=== PATIENT | female | born 1985 | race Caucasian/White ===

== ENCOUNTER 2018-01-24 14:45 | Outpatient (CLI) | payer MEDICAID ==
[2018-01-24] MEDS ORDERED: DIPHENOXYLATE/ATROPINE TAB PO (16:00)
[2018-01-24] MEDS: LACTATED RINGER'S 1,000 ML IV (16:08)
[2018-01-24] MEDS: ONDANSETRON 4 MG INJ IV (16:20)
[2018-01-24 16:29] LABS: ADD MAN DIFF? NO
[2018-01-24 16:31] LABS: BASOPHILS % 0.2 % (0.0-2.0); EOSINOPHILS # 0.1 10^3/ul (0.0-0.5); EOSINOPHILS % 0.9 % (0.0-7.0); HEMATOCRIT 33.3 % (37.0-47.0); HEMOGLOBIN 10.5 g/dl (12.0-16.0); LYMPHOCYTES # 1.3 10^3/ul (0.8-2.9); LYMPHOCYTES % 15.3 % (15.0-51.0); MEAN CORPUSCULAR HEMOGLOBIN 26.6 pg (29.0-33.0); MEAN CORPUSCULAR HGB CONC 31.5 g/dl (32.0-37.0); MEAN CORPUSCULAR VOLUME 84.5 fl (82.0-101.0); MEAN PLATELET VOLUME 11.7 fl (7.4-10.4); MONOCYTE # 0.7 10^3/ul (0.3-0.9); MONOCYTES % 8.3 % (0.0-11.0); NEUTROPHIL # 6.6 10^3/ul (1.6-7.5); NEUTROPHILS % 74.7 % (39.0-77.0); PLATELET COUNT 244 10^3/UL (140-415); RED BLOOD COUNT 3.94 10^6/ul (4.20-5.40); RED CELL DISTRIBUTION WIDTH 15.4 % (11.5-14.5)
[2018-01-24 16:31] LABS: WHITE BLOOD COUNT 8.8 10^3/ul (4.8-10.8)
[2018-01-24 16:32] LABS: ADD UMIC NO; UR ASCORBIC ACID NEGATIVE (NEGATIVE); UR BILIRUBIN (Dip) NEGATIVE (NEGATIVE); UR BLOOD (Dip) NEGATIVE (NEGATIVE); UR CLARITY CLEAR (CLEAR); UR COLOR STRAW (YELLOW); UR GLUCOSE (Dip) NEGATIVE (NEGATIVE); UR KETONES (Dip) NEGATIVE (NEGATIVE); UR LEUKOCYTE ESTERASE (Dip) NEGATIVE Leu/ul (NEGATIVE); UR NITRITE (Dip) NEGATIVE (NEGATIVE); UR SPECIFIC GRAVITY (Dip) 1.004 (1.003-1.030); UR TOTAL PROTEIN (Dip) NEGATIVE (NEGATIVE); UR UROBILINOGEN (Dip) NEGATIVE (NEGATIVE)
[2018-01-24] MEDS: LOPERAMIDE 2 MG CAP PO (16:39)
[2018-01-24 16:49] LABS: ALANINE AMINOTRANSFERASE 19 IU/L (13-69); ALBUMIN 3.8 g/dl (3.3-4.9); ALBUMIN/GLOBULIN RATIO 1.26; ALKALINE PHOSPHATASE 162 IU/L (42-121); ANION GAP 11 (5-13); ASPARTATE AMINO TRANSFERASE 26 IU/L (15-46); BILIRUBIN,INDIRECT 0.2 mg/dl (0-1.1); BILIRUBIN,TOTAL 0.2 mg/dl (0.2-1.3); BLOOD UREA NITROGEN 12 mg/dl (7-20); CALCIUM 9.2 mg/dl (8.4-10.2); CARBON DIOXIDE 21 mmol/L (21-31); CHLORIDE 105 mmol/L (97-110); Estimated GFR > 60 mL/min (>60); GLUCOSE 84 mg/dl (70-220); SODIUM 137 mmol/L (135-144); TOTAL PROTEIN 6.8 g/dl (6.1-8.1)
== END 2018-01-24 17:41 | disposition home or self-care (01) ==
LOC: OBT 14:45 → L-D 14:45 → OBT 17:41
DX: O21.0 Mild hyperemesis gravidarum (principal); O26.893 Other specified pregnancy related conditions, third trimester; R19.7 Diarrhea, unspecified; Z3A.34 34 weeks gestation of pregnancy
CPT/HCPCS: 36415; 76818; 80053; 81003; 85025; 96360

== ENCOUNTER 2018-02-08 10:57 | Inpatient (IN) | payer MEDICAID ==
[2018-02-08] MEDS ORDERED: CARBOPROST 250 MCG INJ IM (11:30)
[2018-02-08] MEDS ORDERED: OXYTOCIN 30 UNITS/LR 500 ML IV ×3 (11:30→13:00)
[2018-02-08] MEDS ORDERED: LIDOCAINE 1% (MPF) 30 ML INJ INJ (11:30)
[2018-02-08] MEDS ORDERED: MISOPROSTOL 200 MCG TAB PR (11:30)
[2018-02-08] MEDS ORDERED: METHYLERGONOVINE 0.2 MG INJ IM (11:30)
[2018-02-08] MEDS ORDERED: IBUPROFEN 600 MG TAB PO (11:30)
[2018-02-08] MEDS: LACTATED RINGER'S 1,000 ML IV ×2 (11:48→21:11)
[2018-02-08 12:07] LABS: ADD MAN DIFF? NO
[2018-02-08 12:13] LABS: BASOPHILS % 0.5 % (0.0-2.0); EOSINOPHILS # 0.1 10^3/ul (0.0-0.5); EOSINOPHILS % 0.9 % (0.0-7.0); HEMATOCRIT 30.9 % (37.0-47.0); LYMPHOCYTES # 1.7 10^3/ul (0.8-2.9); LYMPHOCYTES % 20.7 % (15.0-51.0); MEAN CORPUSCULAR HEMOGLOBIN 26.7 pg (29.0-33.0); MEAN CORPUSCULAR HGB CONC 32.4 g/dl (32.0-37.0); MEAN CORPUSCULAR VOLUME 82.6 fl (82.0-101.0); MEAN PLATELET VOLUME 12.5 fl (7.4-10.4); MONOCYTE # 0.7 10^3/ul (0.3-0.9); MONOCYTES % 8.3 % (0.0-11.0); NEUTROPHIL # 5.6 10^3/ul (1.6-7.5); NEUTROPHILS % 69.1 % (39.0-77.0); PLATELET COUNT 227 10^3/UL (140-415); RED BLOOD COUNT 3.74 10^6/ul (4.20-5.40); RED CELL DISTRIBUTION WIDTH 15.6 % (11.5-14.5)
[2018-02-08 12:13] LABS: WHITE BLOOD COUNT 8.1 10^3/ul (4.8-10.8)
[2018-02-08 12:32] LABS: ALANINE AMINOTRANSFERASE 15 IU/L (13-69); ALBUMIN 3.7 g/dl (3.3-4.9); ALBUMIN/GLOBULIN RATIO 1.02; ALKALINE PHOSPHATASE 163 IU/L (42-121); ANION GAP 11 (5-13); ASPARTATE AMINO TRANSFERASE 24 IU/L (15-46); BILIRUBIN,INDIRECT 0.3 mg/dl (0-1.1); BILIRUBIN,TOTAL 0.3 mg/dl (0.2-1.3); BLOOD UREA NITROGEN 15 mg/dl (7-20); CALCIUM 9.3 mg/dl (8.4-10.2); CARBON DIOXIDE 19 mmol/L (21-31); CHLORIDE 108 mmol/L (97-110); CREATININE 0.57 mg/dl (0.44-1.00); Estimated GFR > 60 mL/min (>60); GLUCOSE 79 mg/dl (70-220); POTASSIUM 3.9 mmol/L (3.5-5.1); SODIUM 138 mmol/L (135-144); TOTAL PROTEIN 7.3 g/dl (6.1-8.1); URIC ACID 6.1 mg/dl (3.1-7.9)
[2018-02-08] MEDS ORDERED: MISOPROSTOL 100 MCG TAB PO ×2 (12:45→13:00)
[2018-02-08 12:55] LABS: ADD UMIC NO; UR ASCORBIC ACID NEGATIVE (NEGATIVE); UR BILIRUBIN (Dip) NEGATIVE (NEGATIVE); UR BLOOD (Dip) NEGATIVE (NEGATIVE); UR CLARITY CLEAR (CLEAR); UR COLOR STRAW (YELLOW); UR GLUCOSE (Dip) NEGATIVE (NEGATIVE); UR KETONES (Dip) NEGATIVE (NEGATIVE); UR LEUKOCYTE ESTERASE (Dip) NEGATIVE Leu/ul (NEGATIVE); UR NITRITE (Dip) NEGATIVE (NEGATIVE); UR SPECIFIC GRAVITY (Dip) 1.005 (1.003-1.030); UR TOTAL PROTEIN (Dip) NEGATIVE (NEGATIVE); UR UROBILINOGEN (Dip) NEGATIVE (NEGATIVE)
[2018-02-08 13:11] LABS: INR 0.91; PARTIAL THROMBOPLASTIN TIME 25.3 Sec (23.0-35.0); PROTIME 12.3 Sec (11.9-14.9)
[2018-02-08] MEDS: MAGNESIUM SULFATE 4 GM/100 ML 100 ML IV (14:09)
[2018-02-08] MEDS: MISOPROSTOL 50 MCG CAPSULE PO ×2 (14:09→17:43)
[2018-02-08] MEDS: MAGNESIUM SULFATE 20 GM/500 ML 500 ML IV (14:39)
[2018-02-08 15:15] LABS: RAPID PLASMA REAGIN NONREACTIVE (NR)
[2018-02-08] MEDS ORDERED: AMPICILLIN 2 GM/NS (PMX) 100 ML IV (15:30)
[2018-02-08] MEDS: BUTORPHANOL 2 MG INJ IV ×2 (17:41→20:55)
[2018-02-08 18:40] LABS: MAGNESIUM 5.3 mg/dl (1.7-2.5)
[2018-02-08] MEDS ORDERED: AMPICILLIN 1 GM/NS (PMX) 50 ML IV (19:30)
[2018-02-08] MEDS: LABETALOL 100 MG TAB PO (21:01)
[2018-02-08] MEDS: LABETALOL HCL 20MG INJ IV (21:10)
[2018-02-08 22:12] LABS: HEPATITIS B SURFACE ANTIGEN NEGATIVE (NEGATIVE)
[2018-02-09] MEDS: MAGNESIUM SULFATE 20 GM/500 ML 500 ML IV ×2 (00:24→12:51)
[2018-02-09 01:19] LABS: MAGNESIUM 5.9 mg/dl (1.7-2.5)
[2018-02-09] MEDS: LACTATED RINGER'S 1,000 ML IV ×2 (03:06→08:00)
[2018-02-09] MEDS: BUTORPHANOL 2 MG INJ IV (04:41)
[2018-02-09] MEDS: MISOPROSTOL 50 MCG CAPSULE PO (05:15)
[2018-02-09 06:56] LABS: MAGNESIUM 6.6 mg/dl (1.7-2.5)
[2018-02-09] MEDS ORDERED: LIDOCAINE 2% (SDV) 5 ML INJ (07:00)
[2018-02-09] MEDS ORDERED: FENTAnyl 2MCG/ML-ROPIV 0.2% 100 ML (07:52)
[2018-02-09] MEDS ORDERED: TRIMETHOBENZAMIDE 100 MG/ML VIAL IM ×2 (08:30→14:30)
[2018-02-09] MEDS ORDERED: NALOXONE (0.4 MG/ML) INJ IV ×2 (08:30→14:30)
[2018-02-09] MEDS ORDERED: FENTAnyl 2MCG/ML-ROPIV 0.2% 100 ML BAG EPI (08:30)
[2018-02-09] MEDS ORDERED: DIPHENHYDRAMINE 50 MG INJ IV ×2 (08:30→14:30)
[2018-02-09] MEDS: ONDANSETRON 4 MG INJ IV (08:43)
[2018-02-09] MEDS: CEFAZOLIN 2 GM/50 ML (PMX) 50 ML IVPB (09:00)
[2018-02-09] MEDS ORDERED: FENTAnyl 50 MCG/ML VIAL (11:19)
[2018-02-09] MEDS ORDERED: OXYTOCIN 10 UNIT INJ (11:19)
[2018-02-09] MEDS ORDERED: morphine SULFATE/PF (10 MG/10 ML) INJ (11:19)
[2018-02-09] MEDS ORDERED: PHENYLephrine (100 MCG/ML) 5ML SYG (11:19)
[2018-02-09] MEDS ORDERED: METOCLOPRAMIDE 10 MG INJ (11:19)
[2018-02-09] MEDS: OXYTOCIN 30 UNITS/LR 500 ML IV ×3 (12:53→23:06)
[2018-02-09 13:25] LABS: MAGNESIUM 4.7 mg/dl (1.7-2.5)
[2018-02-09] MEDS: KETOROLAC 30 MG INJ IV ×2 (14:24→23:08)
[2018-02-09] MEDS ORDERED: morphine 2 MG INJ IV ×2 (14:30)
[2018-02-09] MEDS ORDERED: NALBUPHINE HCL (10 MG/1 ML) INJ IV (14:30)
[2018-02-09] MEDS ORDERED: ONDANSETRON 4 MG INJ IV (14:30)
[2018-02-09] MEDS ORDERED: CARBOPROST 250 MCG INJ IM (15:30)
[2018-02-09] MEDS ORDERED: MISOPROSTOL 200 MCG TAB PR (15:30)
[2018-02-09] MEDS ORDERED: CEFAZOLIN 1 GM/50 ML (PMX) 50 ML IVPB (15:30)
[2018-02-09] MEDS ORDERED: LANOLIN 7 GM TUBE TOP (15:30)
[2018-02-09] MEDS ORDERED: METHYLERGONOVINE 0.2 MG INJ IM (15:30)
[2018-02-09] MEDS ORDERED: OXYTOCIN 30 UNITS/LR 500 ML IV (15:30)
[2018-02-09 15:43] LABS: COLLECTION PERIOD 24 hrs
[2018-02-09 16:01] LABS: CREATININE,URINE RANDOM 43.18 mg/dl (20-320)
[2018-02-09 16:03] LABS: COLLECTION PERIOD 24 hrs; CREATININE CLEARANCE 94.7 mls/min (84.0-162.0); SCRET 0.57 mg/dl (0.44-1.00); VOLUME 1800 ml/24hrs; VOLUME 1800 mls
[2018-02-09] MEDS: CEFAZOLIN 1 GM/50 ML (PMX) 50 ML IVPB (18:14)
[2018-02-09 19:10] LABS: MAGNESIUM 4.6 mg/dl (1.7-2.5)
[2018-02-10 01:11] LABS: MAGNESIUM 4.7 mg/dl (1.7-2.5)
[2018-02-10] MEDS: OXYTOCIN 30 UNITS/LR 500 ML IV ×2 (04:17→09:27)
[2018-02-10] MEDS: KETOROLAC 30 MG INJ IV (06:11)
[2018-02-10] MEDS: MAGNESIUM SULFATE 20 GM/500 ML 500 ML IV (08:37)
[2018-02-10 08:43] LABS: ADD MAN DIFF? NO
[2018-02-10 08:47] LABS: BASOPHILS % 0.2 % (0.0-2.0); EOSINOPHILS # 0.1 10^3/ul (0.0-0.5); EOSINOPHILS % 0.8 % (0.0-7.0); HEMATOCRIT 25.1 % (37.0-47.0); HEMOGLOBIN 8.1 g/dl (12.0-16.0); LYMPHOCYTES # 1.5 10^3/ul (0.8-2.9); LYMPHOCYTES % 12.8 % (15.0-51.0); MEAN CORPUSCULAR HEMOGLOBIN 26.7 pg (29.0-33.0); MEAN CORPUSCULAR HGB CONC 32.3 g/dl (32.0-37.0); MEAN CORPUSCULAR VOLUME 82.8 fl (82.0-101.0); MEAN PLATELET VOLUME 12.4 fl (7.4-10.4); MONOCYTE # 1.1 10^3/ul (0.3-0.9); MONOCYTES % 9.4 % (0.0-11.0); NEUTROPHIL # 9.1 10^3/ul (1.6-7.5); NEUTROPHILS % 76.5 % (39.0-77.0); PLATELET COUNT 197 10^3/UL (140-415); RED BLOOD COUNT 3.03 10^6/ul (4.20-5.40); RED CELL DISTRIBUTION WIDTH 15.4 % (11.5-14.5)
[2018-02-10 08:47] LABS: WHITE BLOOD COUNT 11.8 10^3/ul (4.8-10.8)
[2018-02-10 09:09] LABS: MAGNESIUM 4.5 mg/dl (1.7-2.5)
[2018-02-10] MEDS: SENNA/DOCUSATE NA (8.6MG/50MG) TAB PO ×2 (09:26→21:08)
[2018-02-10] MEDS: LABETALOL 100 MG TAB PO ×2 (10:25→21:08)
[2018-02-10] MEDS ORDERED: OXYCODONE/ACETAMINOPHEN (5/325) TAB PO ×2 (10:50)
[2018-02-10] MEDS ORDERED: HYDROCODONE/APAP (5/325) TAB PO (10:50)
[2018-02-10] MEDS: IBUPROFEN 600 MG TAB PO ×3 (11:10→23:36)
[2018-02-10] MEDS: HYDROCODONE/APAP (5/325) TAB PO (12:40)
[2018-02-11] MEDS: IBUPROFEN 600 MG TAB PO ×4 (05:41→23:53)
[2018-02-11] MEDS: SENNA/DOCUSATE NA (8.6MG/50MG) TAB PO ×2 (09:08→20:59)
[2018-02-11] MEDS: LABETALOL 100 MG TAB PO ×2 (09:08→20:59)
[2018-02-11] MEDS: INFLUENZA VIRUS VACCINE 0.5 ML (DISPENSING) IM* (11:48)
[2018-02-12] MEDS: IBUPROFEN 600 MG TAB PO ×2 (05:41→12:00)
[2018-02-12] MEDS: LABETALOL 100 MG TAB PO (09:08)
[2018-02-12] MEDS: SENNA/DOCUSATE NA (8.6MG/50MG) TAB PO (09:08)
[2018-02-12] MEDS: DIPHTH/TET/ACEL PERTUSS (ADULT) 0.5 ML VIAL IM* (09:09)
== END 2018-02-12 15:15 | disposition home or self-care (01) | DRG 784 ==
LOC: OBT 10:57 → L-D 02-09 11:17 → PP1 02-09 15:49 → OBT 10:57 → L-D 11:03
PROVIDERS: Obstetrics & Gynecology
PROC: 10D00Z1 Extraction of Products of Conception, Low, Open Approach (ICD-10-PCS; principal; 2018-02-09 12:00)
PROC: 0UL70ZZ Occlusion of Bilateral Fallopian Tubes, Open Approach (ICD-10-PCS; 2018-02-09 12:00)
DX: O60.14X0 Preterm labor third trimester with preterm delivery third trimester, not applicable or unspecified (principal); O10.92 Unspecified pre-existing hypertension complicating childbirth; O62.0 Primary inadequate contractions; Z30.2 Encounter for sterilization; Z3A.36 36 weeks gestation of pregnancy; Z37.0 Single live birth
CPT/HCPCS: 62319; 76815; 80053; 81003; 82575; 83735; 84156; 84560; 85025; 85384; 85610; 85730; 86592; 86850; 86900; 86901; 87340; 88302; 90686; 90715; 99464